=== PATIENT | female | born 2000 | race Caucasian/White ===

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

== ENCOUNTER 2020-04-14 17:34 | Emergency (ER) | payer BC ==
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
[2020-04-14] MEDS: Acetaminophen 500 MG Tab PO ONE (19:04)
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
== END 2020-04-14 20:00 | disposition home or self-care (01) ==
LOC: FB.ED 17:34
DX: S00.93XA Contusion of unspecified part of head, initial encounter (principal); S80.01XA Contusion of right knee, initial encounter; S80.02XA Contusion of left knee, initial encounter; R03.0 Elevated blood-pressure reading, without diagnosis of hypertension; G44.209 Tension-type headache, unspecified, not intractable; H57.02 Anisocoria; Z79.899 Other long term (current) drug therapy; V89.2XXA Person injured in unspecified motor-vehicle accident, traffic, initial encounter
CPT/HCPCS: 36415; 70450; 80053; 85025; 99284; A9270

== ENCOUNTER 2021-02-11 14:34 | Emergency (ER) | payer BC ==
[2021-02-11] MEDS ORDERED: hydrOXYzine HCl 25 MG Tab PO ONE (15:29)
--- NOTE | 2021-02-11 15:34 | EDM.PDOC ---
ED HPI GENERAL MEDICAL PROBLEM - General Chief Complaint: Cardiovascular Problem Stated Complaint: ??? Time Seen by Provider: 02/11/21 15:00 Source of Information: Reports: Patient History Limitations: Reports: No Limitations - History of Present Illness INITIAL COMMENTS - FREE TEXT/NARRATIVE: 20-year-old lady with a past medical history significant for difficult to control hypertension and bilateral renal artery stenosis enrolled in a research study with specialty groups through [facility] came to the emergency department this afternoon due to increased blood pressure, headache. She states that she was laying on the couch trying to take a nap and began to feel palpitations in her chest. She states that she checked her blood pressure her blood pressure is high she also had a headache. He states that she has not changed her diet and she has been taking medications as directed. She denies any recent illness including upper respiratory infection, flulike symptoms, change in bowel or bladder habits. She has not changed her diet. Chest Pain Score (Numeric/FACES): 2 - Related Data Allergies Allergy/AdvReac Type Severity Reaction Status Date / Time No Known Allergies Allergy Verified 04/14/20 17:42 Home Meds: Home Meds NIFEdipine [Nifedical XL] 30 mg PO DAILY 04/14/20 [History] PARoxetine HCL [Paxil] 30 mg PO BEDTIME 04/14/20 [History] hydrOXYzine pamoate [Vistaril] 25 - 50 mg TID PRN 04/14/20 [History] Past Medical History Cardiovascular History: Reports: Hypertension Genitourinary History: Reports: Other (See Below) Other Genitourinary History: has 2 renal arteries which cause HTN Psychiatric History: Reports: Anxiety, Depression - Infectious Disease History Infectious Disease History: Reports: Novel Coronavirus Other Infectious Disease History: covid - Past Surgical History HEENT Surgical History: Reports: Adenoidectomy, Tonsillectomy Social & Family History - Family History Family Medical History: No Pertinent Family History - Tobacco Use Tobacco Use Status *Q: Unknown Ever Used Tobacco - Caffeine Use Caffeine Use: Reports: Energy Drinks ED ROS GENERAL - Review of Systems Review Of Systems: See Below Constitutional: Reports: No Symptoms HEENT: Reports: Other (Headache) Respiratory: Reports: No Symptoms Cardiovascular: Reports: Palpitations Endocrine: Reports: No Symptoms GI/Abdominal: Reports: No Symptoms : Reports: No Symptoms Musculoskeletal: Reports: No Symptoms Skin: Reports: No Symptoms Neurological: Reports: No Symptoms Psychiatric: Reports: No Symptoms Hematologic/Lymphatic: Reports: No Symptoms Immunologic: Reports: No Symptoms ED EXAM, GENERAL - Physical Exam Exam: See Below Exam Limited By: No Limitations General Appearance: Alert, WD/WN, No Apparent Distress Eye Exam: Bilateral Eye: EOMI Head: Atraumatic, Normocephalic Neck: Normal Inspection Respiratory/Chest: No Respiratory Distress, Lungs Clear, Normal Breath Sounds Cardiovascular: Normal Peripheral Pulses, Regular Rate, Rhythm, No Edema, No Murmur Peripheral Pulses: 2+: Radial (L), Radial (R), Dorsalis Pedis (L), Dorsalis Pedi s (R) GI/Abdominal: Normal Bowel Sounds, Soft, Non-Tender Back Exam: Normal Inspection. No: CVA Tenderness (R), CVA Tenderness (L) Extremities: Normal Inspection, No Pedal Edema Neurological: Alert, Oriented, CN II-XII Intact, Normal Cognition, Normal Gait Psychiatric: Normal Affect, Normal Mood Skin Exam: Warm, Intact Course - Vital Signs Text/Narrative:: Patient was given 20 mg hydroxyzine. Review of labs grossly normal. Patient's blood pressure has improved significantly to 131/87. This is normal for this patient. Patient will be discharged home. Last Recorded V/S: Last Vital Signs Temp 37.3 C 02/11/21 14:35 Pulse 101 H 02/11/21 15:44 Resp 14 02/11/21 15:44 BP 134/77 02/11/21 15:44 Pulse Ox 99 02/11/21 15:44 - Orders/Labs/Meds Labs: Laboratory Tests 02/11/21 02/11/21 Range/Units 15:36 15:36 WBC 8.0 (3.0-10.3) x10-3/uL RBC 4.71 (3.60-5.20) x10(6)uL Hgb 13.3 (11.4-15.5) g/dL Hct 40.3 (34.2-48.2) % MCV 85.6 (76.7-100.5) fL MCH 28.2 (23.9-33.9) pg MCHC 32.9 (31.9-34.8) g/dL RDW 13.9 (12.3-16.5) % Plt Count 271 (151-488) x10(3)uL MPV 7.8 (7.1-12.4) fL Neut % (Auto) 74.0 (30.8-76.2) % Lymph % (Auto) 15.3 L (18.4-52.1) % [place] % (Auto) 8.6 (4.4-15.7) % Eos % (Auto) 1.8 (0.6-8.1) % Baso % (Auto) 0.3 (0.2-1.5) % Neut # (Auto) 5.9 (1.5-6.3) x10-3/uL Lymph # (Auto) 1.2 (1.0-4.4) x10-3/uL [place] # (Auto) 0.7 (0.3-1.0) x10-3/uL Eos # (Auto) 0.1 (0.0-0.8) x10-3/uL Baso # (Auto) 0.0 (0.0-0.1) x10-3/uL Sodium 142 (135-145) mmol/L Potassium 3.7 (3.5-5.3) mmol/L Chloride 105 (100-110) mmol/L Carbon Dioxide 30 (21-32) mmol/L BUN 11 (7-18) mg/dL Creatinine 1.1 H (0.55-1.02) mg/dL Est Cr Clr Drug Dosing 88.22 mL/min Estimated GFR (MDRD) > 60 (>60) BUN/Creatinine Ratio 10.0 (9-20) Glucose 101 (80-116) mg/dL Calcium 8.6 (8.6-10.2) mg/dL Total Bilirubin 0.2 (0.1-1.3) mg/dL AST 8 D (5-25) IU/L ALT 43 H D (12-36) U/L Alkaline Phosphatase 73 (56-112) IU/L Total Protein 7.5 (6.0-8.0) g/dL Albumin 3.8 (3.5-5.2) g/dL Globulin 3.7 g/dL Albumin/Globulin Ratio 1.0 Meds: Medications Discontinued Medications Generic Name Dose Route Start Last Admin Trade Name Freq PRN Reason Stop Dose Admin Hydroxyzine HCl 25 mg 02/11/21 15:29 02/11/21 15:40 Hydroxyzine Hcl 25 Mg Tab PO 02/11/21 15:30 25 mg ONETIME ONE Administration Departure - Departure Time of Disposition: 16:17 Disposition: Home, Self-Care 01 Condition: Good Clinical Impression: Elevated blood pressure reading Instructions: Hypertension, Adult Forms: ED Department Discharge Additional Instructions: Patient instructed to take medications as directed including using hydroxyzine as needed for anxiety and I explained to her that this may help with palpitations and high blood pressure. Patient expressed understanding and agreement. I advised the patient to follow-up with her specialist for better hypertension control if possible. Sepsis Event Note (ED) - Evaluation Sepsis Screening Result: No Definite Risk - Focused Exam Vital Signs: Vital Signs Temp Pulse Resp BP Pulse Ox 02/11/21 15:44 101 H 14 134/77 99 02/11/21 14:35 37.3 C 116 H 18 160/96 H 99
== END 2021-02-11 16:40 | disposition home or self-care (01) ==
LOC: FB.ED 14:34
DX: I10 Essential (primary) hypertension (principal); Z86.16 Personal history of COVID-19
CPT/HCPCS: 36415; 80053; 85025; 99283; A9270

== ENCOUNTER 2021-02-27 02:33 | Emergency (ER) | payer BC ==
[2021-02-27 03:40] LABS: ACETAMINOPHEN < 2 ug/mL (<2)
--- NOTE | 2021-02-27 04:30 | EDM.PDOCBH ---
ED HPI GENERAL MEDICAL PROBLEM - General Chief Complaint: Behavioral/Psych Stated Complaint: MENTAL HEALTH Time Seen by Provider: 02/27/21 03:00 Source of Information: Reports: Patient History Limitations: Reports: No Limitations - History of Present Illness INITIAL COMMENTS - FREE TEXT/NARRATIVE: Patient presented to the ED because of suicidal ideation. She has a history of anxiety and depression which is treated with effexor and abilify but she decided not to take it for several days now. She said she will OD with medication. There is no hallucinations, delusions. Her main stressors: working 4 jobs,school, no family support and being far away from home. - Related Data Allergies Allergy/AdvReac Type Severity Reaction Status Date / Time No Known Allergies Allergy Verified 02/27/21 03:38 Home Meds: Home Meds hydrOXYzine pamoate [Vistaril] 25 - 50 mg PO TID PRN 04/14/20 [History] ARIPiprazole [Abilify] 2 mg PO BEDTIME 02/27/21 [History] NIFEdipine [Nifedipine ER] 90 mg PO DAILY 02/27/21 [History] Venlafaxine HCl [Venlafaxine ER] 150 mg PO DAILY 02/27/21 [History] Past Medical History Cardiovascular History: Reports: Hypertension Genitourinary History: Reports: Other (See Below) Other Genitourinary History: has 2 renal arteries which cause HTN Psychiatric History: Reports: Anxiety, Depression - Infectious Disease History Infectious Disease History: Reports: Novel Coronavirus Other Infectious Disease History: covid - Past Surgical History HEENT Surgical History: Reports: Adenoidectomy, Tonsillectomy Social & Family History - Family History Family Medical History: No Pertinent Family History - Caffeine Use Caffeine Use: Reports: Energy Drinks ED ROS GENERAL - Review of Systems Review Of Systems: See Below Constitutional: Reports: No Symptoms HEENT: Reports: No Symptoms Respiratory: Reports: No Symptoms Cardiovascular: Reports: No Symptoms Endocrine: Reports: No Symptoms GI/Abdominal: Reports: No Symptoms : Reports: No Symptoms Musculoskeletal: Reports: No Symptoms Skin: Reports: No Symptoms Neurological: Reports: No Symptoms Psychiatric: Reports: Anxiety, Suicidal Ideation Hematologic/Lymphatic: Reports: No Symptoms Immunologic: Reports: No Symptoms ED EXAM, BEHAVIORAL HEALTH - Physical Exam Exam: See Below Exam Limited By: No Limitations General Appearance: Alert, No Apparent Distress Eye Exam: Bilateral Eye: PERRL Ears: Normal External Exam, Normal Canal Nose: Normal Inspection, Normal Mucosa, No Blood Throat/Mouth: Normal Inspection, Normal Lips, Normal Teeth, Normal Gums Head: Atraumatic, Normocephalic Neck: Normal Inspection, Supple, Non-Tender, Full Range of Motion Respiratory/Chest: No Respiratory Distress, Lungs Clear, Normal Breath Sounds, N o Accessory Muscle Use, Chest Non-Tender Cardiovascular: Normal Peripheral Pulses, Regular Rate, Rhythm, No Edema, No Gallop, No JVD, No Murmur, No Rub GI/Abdominal: Normal Bowel Sounds, Soft, Non-Tender, No Organomegaly, No Distention, No Abnormal Bruit, No Mass Back Exam: Normal Inspection, Full Range of Motion Extremities: Normal Inspection, Normal Range of Motion, Non-Tender Neurological: Alert, Normal Mood/Affect, CN II-XII Intact, Normal Cognition, Normal Gait, Normal Reflexes Psychiatric: Alert, Normal Affect, Normal Mood, Oriented COURSE, BEHAVIORAL HEALTH COMP - Course Vital Signs: Last Vital Signs Temp 37.3 C 02/27/21 02:50 Pulse 85 02/27/21 02:50 Resp 16 02/27/21 02:50 BP 150/94 H 02/27/21 02:50 Pulse Ox 99 02/27/21 02:50 Lab result was reviewed and discussed with patient and her friend Anisa URIBE consult was done and patient can be treated as an outpatiet. She will call her counselor tomorrow. She said she is feeling better and safe anyway her friend will stay with her overnight. Orders, Labs, Meds: Laboratory Tests 02/27/21 02/27/21 02/27/21 Range/Units 03:00 03:00 03:15 WBC 7.0 (3.0-10.3) x10-3/uL RBC 4.59 (3.60-5.20) x10(6)uL Hgb 12.9 (11.4-15.5) g/dL Hct 38.8 (34.2-48.2) % MCV 84.5 (76.7-100.5) fL MCH 28.2 (23.9-33.9) pg MCHC 33.3 (31.9-34.8) g/dL RDW 13.9 (12.3-16.5) % Plt Count 278 (151-488) x10(3)uL MPV 7.7 (7.1-12.4) fL Neut % (Auto) 63.1 (30.8-76.2) % Lymph % (Auto) 22.5 (18.4-52.1) % [place] % (Auto) 10.9 (4.4-15.7) % Eos % (Auto) 2.9 (0.6-8.1) % Baso % (Auto) 0.6 (0.2-1.5) % Neut # (Auto) 4.4 (1.5-6.3) x10-3/uL Lymph # (Auto) 1.6 (1.0-4.4) x10-3/uL [place] # (Auto) 0.8 (0.3-1.0) x10-3/uL Eos # (Auto) 0.2 (0.0-0.8) x10-3/uL Baso # (Auto) 0.0 (0.0-0.1) x10-3/uL Sodium (135-145) mmol/L Potassium (3.5-5.3) mmol/L Chloride (100-110) mmol/L Carbon Dioxide (21-32) mmol/L BUN (7-18) mg/dL Creatinine (0.55-1.02) mg/dL Est Cr Clr Drug Dosing Estimated GFR (MDRD) (>60) BUN/Creatinine Ratio (9-20) Glucose (80-116) mg/dL Calcium (8.6-10.2) mg/dL Total Bilirubin (0.1-1.3) mg/dL AST (5-25) IU/L ALT (12-36) U/L Alkaline Phosphatase (56-112) IU/L Total Protein (6.0-8.0) g/dL Albumin (3.5-5.2) g/dL Globulin g/dL Albumin/Globulin Ratio Free T4 Direct (0.82-1.77) ng/dL TSH, Ultra Sensitive (0.36-3.74) IU/mL Urine HCG, Qual Negative (NEGATIVE) Salicylates (<2.8) mg/dL Urine Opiates Screen Negative (NEGATIVE) Ur Buprenorphine Scrn Negative (NEGATIVE) Ur Oxycodone Screen Negative (NEGATIVE) Urine Methadone Screen Negative (NEGATIVE) Ur Propoxyphene Screen Negative (NEGATIVE) Acetaminophen (<2) ug/mL Ur Barbiturates Screen Negative (NEGATIVE) Ur Tricyclics Screen Negative (NEGATIVE) Ur Phencyclidine Scrn Negative (NEGATIVE) Ur Amphetamine Screen Negative (NEGATIVE) U Methamphetamines Scrn Negative (NEGATIVE) U Benzodiazepines Scrn Negative (NEGATIVE) U Cocaine Metab Screen Negative (NEGATIVE) U Marijuana (THC) Screen Negative (NEGATIVE) Ethyl Alcohol (<0.03) % 02/27/21 02/27/21 02/27/21 Range/Units 03:15 03:15 03:15 WBC (3.0-10.3) x10-3/uL RBC (3.60-5.20) x10(6)uL Hgb (11.4-15.5) g/dL Hct (34.2-48.2) % MCV (76.7-100.5) fL MCH (23.9-33.9) pg MCHC (31.9-34.8) g/dL RDW (12.3-16.5) % Plt Count (151-488) x10(3)uL MPV (7.1-12.4) fL Neut % (Auto) (30.8-76.2) % Lymph % (Auto) (18.4-52.1) % [place] % (Auto) (4.4-15.7) % Eos % (Auto) (0.6-8.1) % Baso % (Auto) (0.2-1.5) % Neut # (Auto) (1.5-6.3) x10-3/uL Lymph # (Auto) (1.0-4.4) x10-3/uL [place] # (Auto) (0.3-1.0) x10-3/uL Eos # (Auto) (0.0-0.8) x10-3/uL Baso # (Auto) (0.0-0.1) x10-3/uL Sodium 144 (135-145) mmol/L Potassium 3.9 (3.5-5.3) mmol/L Chloride 104 (100-110) mmol/L Carbon Dioxide 29 (21-32) mmol/L BUN 13 (7-18) mg/dL Creatinine 0.8 (0.55-1.02) mg/dL Est Cr Clr Drug Dosing TNP Estimated GFR (MDRD) > 60 (>60) BUN/Creatinine Ratio 16.3 (9-20) Glucose 109 (80-116) mg/dL Calcium 8.7 (8.6-10.2) mg/dL Total Bilirubin 0.2 (0.1-1.3) mg/dL AST 20 D (5-25) IU/L ALT 28 D (12-36) U/L Alkaline Phosphatase 72 (56-112) IU/L Total Protein 7.5 (6.0-8.0) g/dL Albumin 3.9 (3.5-5.2) g/dL Globulin 3.6 g/dL Albumin/Globulin Ratio 1.1 Free T4 Direct 1.15 (0.82-1.77) ng/dL TSH, Ultra Sensitive 1.98 (0.36-3.74) IU/mL Urine HCG, Qual (NEGATIVE) Salicylates (<2.8) mg/dL Urine Opiates Screen (NEGATIVE) Ur Buprenorphine Scrn (NEGATIVE) Ur Oxycodone Screen (NEGATIVE) Urine Methadone Screen (NEGATIVE) Ur Propoxyphene Screen (NEGATIVE) Acetaminophen (<2) ug/mL Ur Barbiturates Screen (NEGATIVE) Ur Tricyclics Screen (NEGATIVE) Ur Phencyclidine Scrn (NEGATIVE) Ur Amphetamine Screen (NEGATIVE) U Methamphetamines Scrn (NEGATIVE) U Benzodiazepines Scrn (NEGATIVE) U Cocaine Metab Screen (NEGATIVE) U Marijuana (THC) Screen (NEGATIVE) Ethyl Alcohol (<0.03) % 02/27/21 02/27/21 Range/Units 03:15 03:15 WBC (3.0-10.3) x10-3/uL RBC (3.60-5.20) x10(6)uL Hgb (11.4-15.5) g/dL Hct (34.2-48.2) % MCV (76.7-100.5) fL MCH (23.9-33.9) pg MCHC (31.9-34.8) g/dL RDW (12.3-16.5) % Plt Count (151-488) x10(3)uL MPV (7.1-12.4) fL Neut % (Auto) (30.8-76.2) % Lymph % (Auto) (18.4-52.1) % [place] % (Auto) (4.4-15.7) % Eos % (Auto) (0.6-8.1) % Baso % (Auto) (0.2-1.5) % Neut # (Auto) (1.5-6.3) x10-3/uL Lymph # (Auto) (1.0-4.4) x10-3/uL [place] # (Auto) (0.3-1.0) x10-3/uL Eos # (Auto) (0.0-0.8) x10-3/uL Baso # (Auto) (0.0-0.1) x10-3/uL Sodium (135-145) mmol/L Potassium (3.5-5.3) mmol/L Chloride (100-110) mmol/L Carbon Dioxide (21-32) mmol/L BUN (7-18) mg/dL Creatinine (0.55-1.02) mg/dL Est Cr Clr Drug Dosing Estimated GFR (MDRD) (>60) BUN/Creatinine Ratio (9-20) Glucose (80-116) mg/dL Calcium (8.6-10.2) mg/dL Total Bilirubin (0.1-1.3) mg/dL AST (5-25) IU/L ALT (12-36) U/L Alkaline Phosphatase (56-112) IU/L Total Protein (6.0-8.0) g/dL Albumin (3.5-5.2) g/dL Globulin g/dL Albumin/Globulin Ratio Free T4 Direct (0.82-1.77) ng/dL TSH, Ultra Sensitive (0.36-3.74) IU/mL Urine HCG, Qual (NEGATIVE) Salicylates 0.9 L (<2.8) mg/dL Urine Opiates Screen (NEGATIVE) Ur Buprenorphine Scrn (NEGATIVE) Ur Oxycodone Screen (NEGATIVE) Urine Methadone Screen (NEGATIVE) Ur Propoxyphene Screen (NEGATIVE) Acetaminophen < 2 L (<2) ug/mL Ur Barbiturates Screen (NEGATIVE) Ur Tricyclics Screen (NEGATIVE) Ur Phencyclidine Scrn (NEGATIVE) Ur Amphetamine Screen (NEGATIVE) U Methamphetamines Scrn (NEGATIVE) U Benzodiazepines Scrn (NEGATIVE) U Cocaine Metab Screen (NEGATIVE) U Marijuana (THC) Screen (NEGATIVE) Ethyl Alcohol < 0.03 (<0.03) % Departure - Departure Time of Disposition: 04:30 Disposition: Home, Self-Care 01 Condition: Good Clinical Impression: Suicidal ideation, Anxiety, Depression - Discharge Information Instructions: Generalized Anxiety Disorder, Adult, Managing Depression, Adult, Helping Someone Who Is Suicidal Referrals: Tomeka Terry NP [Primary Care Provider] - Forms: ED Department Discharge Additional Instructions: Please read discharge instructions on suicidal ideation Start taking your abilify and effexor again Call your counselor today and ask if you you can be seen today or tomorrow Return to the ED anytime if you feel like everything is out of control
== END 2021-02-27 04:40 | disposition home or self-care (01) ==
LOC: FB.ED 02:33
DX: F32.9 Major depressive disorder, single episode, unspecified (principal); F41.9 Anxiety disorder, unspecified; I10 Essential (primary) hypertension; Z86.16 Personal history of COVID-19
CPT/HCPCS: 36415; 80053; 80143; 80179; 80307; 81025; 84439; 84443; 85025; 99284

== ENCOUNTER 2021-08-02 15:09 | Emergency (ER) | payer BC, OTHER ==
[2021-08-02 15:54] VITALS: BP 147/95; PULSE 97
== END 2021-08-02 16:50 | disposition home or self-care (01) ==
LOC: FB.ED 15:09
DX: R55 Syncope and collapse (principal); I10 Essential (primary) hypertension; Z79.899 Other long term (current) drug therapy
CPT/HCPCS: 36415; 80053; 85025; 93005; 99284-25

== ENCOUNTER 2021-08-08 09:38 | Emergency (ER) | payer OTHER ==
[2021-08-08] MEDS ORDERED: Sodium Chloride 0.9% 10 ML Syringe FLUSH PRN (09:43)
[2021-08-08] MEDS ORDERED: Sodium Chloride 0.9% 1,000 ML IV SCH (10:00)
[2021-08-08] MEDS ORDERED: Iopamidol 755 MG/ML 150 ML Bottle IV ONE (10:51)
== END 2021-08-08 13:40 | disposition home or self-care (01) ==
LOC: FB.ED 09:38
DX: T14.8XXA Other injury of unspecified body region, initial encounter (principal); V49.40XA Driver injured in collision with unspecified motor vehicles in traffic accident, initial encounter; Y92.410 Unspecified street and highway as the place of occurrence of the external cause
CPT/HCPCS: 36415; 70450; 71250; 72125; 73590-LT; 74176; 80053; 81001; 81025; 84484; 85610; 85730; 99285-25; J7030; Q9967

== ENCOUNTER 2021-09-28 22:35 | Emergency (ER) | payer OTHER | END 2021-09-29 01:30 | disposition home or self-care (01) | LOC: FB.ED 22:35 | DX: T76.21XA Adult sexual abuse, suspected, initial encounter (principal) | CPT/HCPCS: 99283; 99284 ==